=== PATIENT | female | born 1950 | race Caucasian/White ===

== ENCOUNTER → 2016-11-14 | Outpatient (CLI) | payer OTHER ==
[~2016-11-14] MED LIST: AMOX875T PO; ASCO100061 PO; ASPEC81 PO; BIMA0.01 OPB; CALC1TAB9 PO; CHOL100010 PO; GLCSC500400 PO; JUICE PLUS; METH-736 PO; MULTTAB58 PO; OMEG10007 PO; RAMI5CAP PO; SIMV20TA2 PO; SITA50TA5 PO
[2016-11-14 09:32] LABS: BASO % 0.5 %; BASO ABS # 0.04 K/uL (0-0.2); COMPLETE YES; HEMATOCRIT 43.2 % (37-47); IG% 0.3 %; LYMPH % 19.9 %; LYMPH ABS # 1.58 K/uL (1.2-3.4); MEAN CELL VOLUME 93.1 fL (80-100); MEAN CORPUSCULAR HEMOGLOBIN 30.8 pg (25-34); MEAN CORPUSCULAR HGB CONC 33.1 g/dl (32-36); MEAN PLATELET VOLUME 10.3 fL (7.4-10.4); MONO % 7.4 %; NEUT % 69.9 %; PLATELET COUNT 186 K/uL (130-400); RED BLOOD COUNT 4.64 M/uL (4.2-5.4); WHITE BLOOD COUNT 7.95 K/uL (4.8-10.8)
[2016-11-14 09:47] LABS: ALT/SGPT 44 U/L (12-78); AST/SGOT 23 U/L (15-37); BLOOD UREA NITROGEN 20 mg/dl (7-18); BUN/CREATININE RATIO 30.5 (10-20); CALCIUM 8.7 mg/dl (8.5-10.1); CARBON DIOXIDE 29 mmol/L (21-32); CHLORIDE 107 mmol/L (98-107); CREATININE 0.64 mg/dl (0.60-1.20); GLUCOSE 106 mg/dl (70-99); POTASSIUM 4.4 mmol/L (3.5-5.1); SODIUM 141 mmol/L (136-145)
[2016-11-14 09:54] LABS: ESTIMATED AVERAGE GLUCOSE 126 mg/dl; HA1C FLAG Normal (Normal)
[2016-11-14 09:59] LABS: ALB/GLOB RATIO 1.1 (0.9-2); ALKALINE PHOSPHATASE 106 U/L (45-117); CHOLESTEROL 152 mg/dl (0-200); CHOLESTEROL/HDL RATIO 2.9; HDL CHOLESTEROL 52 mg/dl; LDL CHOLESTEROL CALCULATED 84 mg/dl; TRIGLYCERIDES 81 mg/dl (0-150); VERY LOW DENSITY LIPOPROT CALC 16 mg/dl
== END | disposition home or self-care (01) ==
LOC: C.LAB 06:58
PROVIDERS: ATTEND Internal Medicine
DX: I10 Essential (primary) hypertension (principal)

== ENCOUNTER → 2016-12-30 | Outpatient (CLI) | payer OTHER | END | disposition home or self-care (01) | LOC: C.PATHSPEC 16:42 | PROVIDERS: ATTEND Dermatology | DX: L30.8 Other specified dermatitis (principal) ==

== ENCOUNTER → 2017-04-10 | Outpatient (CLI) | payer OTHER ==
--- NOTE | 2017-04-10 13:43 | MAMMOGRAPHY REPORT ---
BILATERAL DIGITAL SCREENING MAMMOGRAM WITH CAD: 04/10/2017 CLINICAL HISTORY: Routine screening. Patient has no complaints. TECHNIQUE: Current study was also evaluated with a Computer Aided Detection (CAD) system. Bilateral CC and MLO views were obtained. COMPARISON: Comparison is made to exams dated: 04/09/2016 mammogram, 04/04/2014 ultrasound, 4 mammogram, 03/10/2013 mammogram, 03/08/2012 mammogram, and 02/27/2011 mammogram - [facility]. BREAST COMPOSITION: There are scattered areas of fibroglandular density in both breasts. FINDINGS: No suspicious masses, calcifications, or areas of architectural distortion are noted in ei ther breast. There has been no significant interval change compared to prior exams. Again noted are fluctuating small bilateral benign-appearing masses, which likely represent cysts. Scattered bilatera l benign-appearing calcifications are not significantly changed. IMPRESSION: ACR BI-RADS CATEGORY 2: BENIGN There is no mammographic evidence of malignancy. A 1 year screening mammogram is recommended. The pa tient will receive written notification of the results. Approximately 10% of breast cancers are not detected with mammography. A negative mammographic report should not delay biopsy if a clinically suggestive mass is present. Thea Mi M.D. ah/:04/10/2017 08:02:03 Certified Pathology Assistant: Katrin Vazquez, [facility] letter sent: Normal 1/2 BI-RADS Code: ACR BI-RADS Category 2: Benign
== END | disposition home or self-care (01) ==
LOC: C.MAMM 07:32
PROVIDERS: ATTEND Internal Medicine
DX: Z12.31 Encounter for screening mammogram for malignant neoplasm of breast (principal)

== ENCOUNTER → 2018-01-29 | Outpatient (CLI) | payer OTHER ==
[2018-01-29 09:37] LABS: BASO % 0.5 %; BASO ABS # 0.04 K/uL (0-0.2); EOS % 2.4 %; EOS ABS # 0.18 K/uL (0-0.5); HEMATOCRIT 44.4 % (37-47); HEMOGLOBIN 14.7 g/dL (12.0-16.0); IG# 0.02 K/uL (0.00-0.02); LYMPH % 27.5 %; LYMPH ABS # 2.08 K/uL (1.2-3.4); MEAN CELL VOLUME 92.9 fL (80-100); MEAN CORPUSCULAR HEMOGLOBIN 30.8 pg (25-34); MEAN CORPUSCULAR HGB CONC 33.1 g/dl (32-36); MEAN PLATELET VOLUME 10.8 fL (7.4-10.4); MONO % 11.4 %; MONO ABS # 0.86 K/uL (0.11-0.59); NEUT % 57.9 %; NEUT ABS # 4.38 K/uL (1.4-6.5); PLATELET COUNT 173 K/uL (130-400); RED CELL DISTRIBUTION WIDTH CV 13.7 % (11.5-14.5); RED CELL DISTRIBUTION WIDTH SD 46.7 fL (36.4-46.3); WHITE BLOOD COUNT 7.56 K/uL (4.8-10.8)
[2018-01-29 10:02] LABS: ALBUMIN 3.8 gm/dl (3.4-5.0); ALKALINE PHOSPHATASE 81 U/L (45-117); ALT/SGPT 52 U/L (12-78); AST/SGOT 29 U/L (15-37); BLOOD UREA NITROGEN 22 mg/dl (7-18); CARBON DIOXIDE 28 mmol/L (21-32); CHOLESTEROL 154 mg/dl (0-200); CREATININE 0.61 mg/dl (0.60-1.20); GLUCOSE 103 mg/dl (70-99); LDL CHOLESTEROL CALCULATED 92 mg/dl; POTASSIUM 4.3 mmol/L (3.5-5.1); SODIUM 139 mmol/L (136-145); TOTAL PROTEIN 7.1 gm/dl (6.4-8.2)
[2018-01-29 10:31] LABS: HEMOGLOBIN A1C 6.1 % (4.5-5.6)
== END | disposition home or self-care (01) ==
LOC: C.LAB 06:58
PROVIDERS: ATTEND Internal Medicine
DX: Z00.00 Encounter for general adult medical examination without abnormal findings (principal); I10 Essential (primary) hypertension; M19.90 Unspecified osteoarthritis, unspecified site; E11.9 Type 2 diabetes mellitus without complications; G47.33 Obstructive sleep apnea (adult) (pediatric); E78.5 Hyperlipidemia, unspecified

== ENCOUNTER 2019-06-06 07:42 | Observation (INO) ==
--- NOTE | 2019-05-31 10:58 | Anesthesiology Consultation ---
Date of Service May 31, 2019 Assessment & Plan Chart Review Chart Review: Acceptable Risk for Surgery and Patient NOT seen in Pre Admission Testing Consults Requested none ASA ASA3 Proposed Anesthesia Anesthesia Type: General History Surgery Operation Date: 06/06/19 07:00 Proposed Procedures p Left Breast Lumpectomy with Needle Localization and Left [place] Lymph Node Biopsy - Abram Woodson MD, FACS Height/Weight Height: 5 ft Weight: 79.379 kg Allergies Allergy/AdvReac Type Severity Reaction Status Date / Time amoxicillin Allergy rash Verified 05/18/19 12:41 Medications Home Medications Medication Instructions Recorded Confirmed Last Taken ramipril 5 mg capsule 5 mg PO QAM 05/05/19 05/18/19 Unknown sitagliptin 50 mg-metformin 1,000 1 tab PO BID 05/05/19 05/18/19 Unknown mg tablet bimatoprost 0.01 % eye drops 1 drops OP QPM 05/12/19 05/18/19 Unknown Juice Plus 1 dose PO DAILY 05/18/19 05/18/19 Unknown Relief Factor 1 dose PO DAILY 05/18/19 05/18/19 Unknown ascorbic acid (vitamin C) [Vitamin 1,000 mg PO QDL 05/18/19 05/18/19 Unknown C] aspirin 81 mg PO 3XWK 05/18/19 05/18/19 Unknown calcium citrate-vitamin D3 1 tab PO BID 05/18/19 05/18/19 Unknown [Citracal + D Maximum] cholecalciferol (vitamin D3) 1,000 unit PO BID 05/18/19 05/18/19 Unknown [Vitamin D3] [id number]-ruma-bosw 1 tab PO BID 05/18/19 05/18/19 Unknown [Glucosamine-Chondroitin 3X] simvastatin 20 mg PO QPM 05/18/19 05/18/19 Unknown Past Medical History Medical History Aortic valve sclerosis Borderline glaucoma Breast cancer Cardiac murmur [place]25 [place] Diabetes mellitus, type 2 NIDDM Hyperlipidemia (Inactive) Hypertension (Chronic) Mild obstructive sleep apnea (Chronic) no device Osteoarthritis Exercise / Class Metabolic Activity III < 4 Walking/Shop/Light housework Past Family History Family History Aunt Breast cancer Grandmother (Paternal) Diabetes Mother Cancer Grandfather (Paternal) Heart disease Grandmother (Maternal) Stroke Past Surgical History Surgical History History of breast biopsy Lt History of colonoscopy History of wisdom tooth extraction Past Anesthesia History No Hx of Anesthesia Complications and No Family Hx of Anesthesia Complications History of PONV No Hx of PONV and No Hx of Motion Sickness Social History Smoking Status: Never smoker Do You Dip or Chew Tobacco: No Hx Alcohol Use: Yes Alcohol type: wine alcohol intake frequency: holidays/special occasions only Hx Substance Use: No substance use type: does not use Testing Laboratory Results WBC: 6.09 Hc.6 Hct: 42.8 PLATELETS: 183 SODIUM: 138 POTASSIUM: 4.2 CHLORIDE: 103 CO2: 28 BUN: 16 CREATININE: 0.67 GLUCOSE: 115 PT: PTT: INR: UA: TYPE AND SCREEN: HgB A1C-6.1 Electrocardiogram Date: 05/31/19 Findings: + NSR @ (at 63)
[~2019-06-06 07:42] MED LIST changes: -AMOX875T PO; -ASCO100061 PO; -ASPEC81 PO; -BIMA0.01 OPB; -CALC1TAB9 PO; +CEFAZOLIN 2000MG 2,000 MG/15 ML SYR IV SCH; -CHOL100010 PO; -GLCSC500400 PO; -JUICE PLUS; +LR 15ML/HR IV SCH; -METH-736 PO; -MULTTAB58 PO; -OMEG10007 PO; -RAMI5CAP PO; -SIMV20TA2 PO; -SITA50TA5 PO
[2019-06-06] MEDS ORDERED: MIDAZOLAM HCL 1 MG/ML 2ML VIAL ONE (09:17)
[2019-06-06] MEDS ORDERED: DEXAMETHASONE SOD INJ 4 MG/ML VIAL ONE (09:17)
[2019-06-06] MEDS ORDERED: fentaNYL citrate 100 MCG/2 ML VIAL ONE ×2 (09:17→11:17)
[2019-06-06] MEDS ORDERED: PROPOFOL IV EMULSION 10 MG/ML 20 ML VIAL IV ONE ×2 (09:17→11:39)
[2019-06-06] MEDS ORDERED: LIDOCAINE HCL 2% 2 ML VIAL/AMP(20MG/ML) INFIL ONE (09:17)
[2019-06-06] MEDS ORDERED: ONDANSETRON INJ 2 MG/ML 2 ML VIAL ONE (09:17)
--- NOTE | 2019-06-06 09:52 | Nuclear Medicine Report ---
LYMPHOSCINTIGRAPHY CLINICAL HISTORY: Left-sided breast cancer. PROCEDURE: Using standard sterile technique, 4 intradermal periareolar and one deep injection of 0.47 7 mCi of Lymphoseek was placed in the left breast. The patient tolerated the procedure well. There we re no immediate complications. The patient was subsequently transported to the surgical suite. No luis ging was obtained at the referring physician's request. IMPRESSION: Injection of 0.477 mCi of Lymphoseek in the left breast. Electronically signed by: William Steele M.D. 06/06/2019 9:50 AM
[2019-06-06] MEDS ORDERED: ISOSULFAN BLUE 10 MG/ML VIAL 5 ML ONE (09:55)
[2019-06-06] MEDS ORDERED: BUPIVACAINE 0.5 % 5 MG/1 ML MPF 30ML VIAL ONE (09:55)
--- NOTE | 2019-06-06 09:58 | History & Physical Bridge Note ---
Date of Service June 06, 2019 History & Physical Bridge Note I have examined the patient, reviewed the History & Physical and in the interval since the performance of the History & Physical I have noted the following changes of clinical significance: no changes noted
[2019-06-06] MEDS ORDERED: ePHEDrine sulfate 50 MG/ML AMP IV PRN (10:04)
[2019-06-06] MEDS ORDERED: fentaNYL citrate 100 MCG/2 ML VIAL IV PRN (10:04)
[2019-06-06] MEDS ORDERED: PROMETHAZINE HCL 12.5 MG in SODIUM CHLORIDE 0.9% 50 ML IV PRN ×2 (10:04→12:40)
[2019-06-06] MEDS ORDERED: FLUMAZENIL 0.1 MG/1 ML 10 ML VIAL IV PRN (10:04)
[2019-06-06] MEDS ORDERED: ATROPINE SULFATE 0.1 MG/ML 10ML SYR IV PRN (10:04)
[2019-06-06] MEDS ORDERED: ONDANSETRON INJ 2 MG/ML 2 ML VIAL IV PRN ×2 (10:04→12:40)
[2019-06-06] MEDS ORDERED: HYDROmorphone INJ 1 MG/ML SYRINGE IV PRN (10:04)
[2019-06-06] MEDS ORDERED: LABETALOL HCL IV 5 MG/ML 20ML IV PRN (10:04)
[2019-06-06] MEDS ORDERED: NALOXONE HCL 0.4 MG/1 ML VIAL/CARP IV PRN (10:04)
[2019-06-06] MEDS ORDERED: CEFAZOLIN 2,000 MG/15 ML IV PUSH IV ONE (10:12)
[2019-06-06] MEDS ORDERED: METHYLENE BLUE 0.5% 10 ML VIAL ONE (10:22)
[2019-06-06] MEDS ORDERED: PHENYLEPHRINE 100MCG/ML 5ML SYR ONE (10:39)
[2019-06-06] MEDS ORDERED: KETOROLAC 30 MG/ML VIAL ONE (11:25)
--- NOTE | 2019-06-06 11:39 | Post Operative Brief Note ---
PG Immediate Post Op with CF Date of Surgery June 06, 2019 Pre & Post Diagnosis Operation Date: 06/06/19 11:45 Pre-Op Diagnosis: Left Breast Cancer Post-Op Diagnosis: Left Breast Cancer I identified the patient and participated in the time-out.: Yes Procedure Operation Date: 06/06/19 11:45 Actual Procedures p Left Breast Lumpectomy with Needle Localization and Left [place] Lymph Node Biopsy(Left) - Abram Woodson MD, FACS Surgeon Abram Woodson MD, FACS Event Attendant Henrique Hastings Estimated Blood Loss 20 Findings Consistent with Post-Op Diagnosis Specimens Specimen Description: Frozen 1. Left [place] Lymph Node Fresh 1. Left Breast Tissue, Skin Anterior, Needle is Medial, Long silk is lateral/retro aerolar, short silk superior 2. Left breast additional lateral/ retro aereolar/ superior tissue, long silk- retro aereolar, short silk-medial, methylene blue-new margin 3.Left breast additional inferior tissue, long silk-lateral, short silk-medial, methylene blue-new margin
[2019-06-06] MEDS ORDERED: ALBUTEROL 0.083% NEBU SOLN 3 ML VIAL NEB ONE (11:56)
[2019-06-06] MEDS ORDERED: ACETAMINOPHEN 1,000 MG/100 ML VIAL IV ONE (12:00)
--- NOTE | 2019-06-06 12:08 | Operative Report ---
DATE OF OPERATION: 06/06/2019 NAME OF OPERATION: Left lumpectomy with sentinel lymph node biopsy. PREOPERATIVE DIAGNOSIS: Invasive ductal carcinoma of the left breast. POSTOPERATIVE DIAGNOSIS: Invasive ductal carcinoma of the left breast. STAFF SURGEON: Abram Woodson M.D. COMBINATION WELDER APPRENTICE: Rashmi Calvo. ANESTHESIA: General. DESCRIPTION OF PROCEDURE: The patient was brought in the operating room and placed on the operating table in supine position. Left arm was extended on an arm board. She had undergone needle localization of left breast and injection for sentinel lymph node biopsy. Left breast and axilla were prepped and draped in usual fashion. My drafter assistant helped with prepping, draping, excision of the breast tissue and lymph node and closure of the wounds. Initially, incision was made in the left axilla using 0.5% plain Marcaine to anesthetize breast and axilla. Dissection was carried down deep into the axilla using the Neoprobe identifying a large axillary node which was sent for frozen section. The frozen section was negative. During the frozen section, we performed lumpectomy. The needle was placed at approximately 8 o'clock medial left breast toward the retroareolar area. Elliptical incision was made taking superficial tissue down around the needle and then the tissue was marked left breast tissue with the needle medial, skin anterior, long suture lateral/retroareolar, short suture superior. I then took additional tissue. The initial tissue was additional lateral/retroareolar/superior. It was marked with a long suture retroareolar, short suture medial, methylene blue new margin. I took additional inferior tissue which was marked with long silk suture lateral and short silk suture medial with methylene blue new margin. I also placed clips near the area of the prior clip. After appropriate hemostasis, the tissue was also initially put into the Faxitron and the clip was in the center of the tissue and I did discuss this with Dr. Flores. At this point, both incisions were closed by reapproximating the deep tissue using 2-0 plain suture. The axilla was reapproximated using 4-0 nylon for the skin, the breast using subcuticular 4-0 Monocryl with Steri-Strips. Dressings applied and patient transferred to recovery room in stable condition. I attest to the content of the Intraoperative Record and any orders documented therein. Any exception s are noted below.
[2019-06-06] MEDS ORDERED: SUCCINYLCHOLINE 100MG/5ML SYR ONE (12:14)
--- NOTE | 2019-06-06 12:35 | Anesthesiology Progress Note ---
Date of Service June 06, 2019 Anesthesia Post Procedure Vital Signs Vital Signs: Temp Pulse Pulse Resp BP Pulse Ox 06/06/19 12:30 70 16 145/73 H 96 06/06/19 12:26 75 14 97 06/06/19 12:20 72 16 139/94 100 06/06/19 12:10 70 18 143/84 H 99 06/06/19 12:04 37.0 C 69 18 138/76 98 06/06/19 09:57 36.7 C 69 18 172/88 H 98 Transfer of Care Handoff Completed per policy Notes Mental Status: alert / awake / arousable Patient Amnestic to Procedure: Yes Nausea / Vomiting: adequately controlled Pain: adequately controlled Airway Patency, RR, SpO2: stable & adequate BP & HR: stable & adequate Hydration State: stable & adequate Anesthetic Complications: no major complications apparent
[2019-06-06] MEDS ORDERED: MoRPHine SULFATE 2 MG/ML CARP IV PRN ×2 (12:40)
[2019-06-06] MEDS ORDERED: HYDROCODONE/ACETAMOPHEN 5/325MG TAB PO PRN ×2 (12:40)
[2019-06-06] MEDS ORDERED: PROMETHAZINE HCL 25 MG in SODIUM CHLORIDE 0.9% 50 ML IV PRN (12:40)
[2019-06-06] MEDS ORDERED: IBUPROFEN 600 MG TAB PO PRN (12:40)
[2019-06-06] MEDS ORDERED: ACETAMINOPHEN 325 MG TAB PO PRN (12:40)
--- NOTE | 2019-06-06 13:52 | Hospitalist Consultation ---
Date of Consultation June 06, 2019 Assessment & Plan (1) Invasive ductal carcinoma of breast: - Pain management, bowel regimen and dvt ppx per primary team - PT/OT - pt uses ambulatory device and guides herself along avila/etc for balance. 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 - Lifting/activity limitations per the primary team (2) Hypertension: - Continue ramipril, BP slightly elevated upon arrival to the room s/p surgery at 143/78. Will continue to monitor. (3) Aortic valve sclerosis: - noted (4) Mild obstructive sleep apnea: - Does not use CPAP device (5) Diabetes mellitus, type 2: - Cont ISS with accuchecks ACHS - Pt did not take Janumet this morning due to surgical procedure, will plan on resuming upon discharge - Last a1c = 6.1 on 05/09/19 - HH/DM diet (6) Arthritis: - Pain management as above (7) Arthritis of knee, degenerative: - Stable, right knee, continue using cane with ambulation. (8) DVT prophylaxis: - teds, ambulatory Dispo: From home, remain in the hospital overnight and likely discharge tomorrow per primary team. Thank you for involving us in the care of Ms. Canchola. Please do not hesitate to call with questions or concerns. At this time medicine service will sign off. History of Present Illness Reason for Consultation: Medical management Requesting Physician: Dr. Woodson Attending Physician: Abram Woodson MD, [facility] History of Present Illness This is a 69 yo F with PMHx of Invasive ductal carcinoma of the left breast, grade 3, ER/DE >90%, HER2 1+ diagnosed 05/02/19, who underwent elective lumpectomy by Dr. Woodson today on 06/06/19, as well as HTN, aortic valve sclerosis, DM II, mild obstructive sleep apnea, and arthritis. She is present h ere with her cousin and . Pt notes that she is doing well since surgery. Her pain is well controlled, and has eaten lunch without any difficulty. She notes that she did not take Janumet this morning, but was counseled that we will monitor her blood glucose while here in the hospital. She has been up and ambulated to the bathroom without difficulty. She denies any other acute complaints. Allergies Allergy/AdvReac Type Severity Reaction Status Date / Time amoxicillin Allergy rash Verified 06/06/19 09:43 Home Medications Home Medications Medication Instructions Recorded Confirmed Type ramipril 5 mg capsule 5 mg PO QAM 05/05/19 06/06/19 History sitagliptin 50 mg-metformin 1,000 1 tab PO BID 05/05/19 06/06/19 History mg tablet bimatoprost 0.01 % eye drops 1 drops OP QPM 05/12/19 06/06/19 History Juice Plus 1 dose PO DAILY 05/18/19 06/06/19 History Relief Factor 1 dose PO DAILY 05/18/19 06/06/19 History ascorbic acid (vitamin C) [Vitamin 1,000 mg PO QDL 05/18/19 06/06/19 History C] aspirin 81 mg PO 4XWK 05/18/19 06/06/19 History calcium citrate-vitamin D3 1 tab PO BID 05/18/19 06/06/19 History [Citracal + D Maximum] cholecalciferol (vitamin D3) 1,000 unit PO BID 05/18/19 06/06/19 History [Vitamin D3] [id number]-C-ruma-bosw 1 tab PO BID 05/18/19 06/06/19 History [Glucosamine-Chondroitin 3X] simvastatin 20 mg PO QPM 05/18/19 06/06/19 History nesymhruktki-wczalvac-[id number] 1 tab PO 4XWK 06/06/19 06/06/19 History [Multivitamin 50 Plus] Patient History Medical History (Updated 06/06/19 @ 14:08 by Pat Nickerson PA-C) Aortic valve sclerosis Borderline glaucoma Breast cancer Cardiac murmur [place]25 [place] Diabetes mellitus, type 2 NIDDM Hyperlipidemia (Inactive) Hypertension (Chronic) Mild obstructive sleep apnea (Chronic) no device Osteoarthritis Surgical History (Updated 06/06/19 @ 13:33 by Lucy Dye RN) History of breast biopsy Lt History of colonoscopy History of wisdom tooth extraction S/P lumpectomy of breast (06/06/19) Left lumpectomy with sentinel lymph node biopsy. Dr. Woodson 06/06/19 Family History Aunt Breast cancer Grandmother (Paternal) Diabetes Mother Cancer Grandfather (Paternal) Heart disease Grandmother (Maternal) Stroke Social History Preferred Language: Chinese Communication Ability: Effective Hearing Ability: Normal Pattern Grader Required: No Beliefs That Will Affect Care: Faith Faith Beliefs: baptism marital status: Current Living Situation: Spouse current occupational status: employed current occupation: animal killer Other Information That Helps Us Care for You: No Feels Safe at Home: Yes Safety Concerns: Feels Safe At This Time Smoking Status: Never smoker Do You Dip or Chew Tobacco: No ; Second Hand Exposure: No ; Hx Alcohol Use: Yes Alcohol type: wine Alcohol Intake Frequency: Holidays/Special Occasions Hx Substance Use: No Seatbelt Use: always Sunscreen Use: Yes Review of Systems Review of Systems: Constitutional: No fever, sweats or chills Eyes: No diplopia, no worsening or blurred vision ENT: normal hearing, no trouble swallowing Respiratory: No cough, sputum, dyspnea at rest or on exertion Chest wall: Pain well controlled, using cane to walk with the right hand Cardiovascular: No chest pain, tightness or palpitations Abdomen: No pain, nausea, vomiting, diarrhea or constipation Musculoskeletal: No joint pain, calf pain, swelling Neurologic: No weakness, numbness/tingling, or balance problems Psychiatric: No anxiety or depression Skin: No rash or itch Physical Exam Physical Exam: General: awake, alert, no apparent distress, + obese Head: Normocephalic, atraumatic ENT: PERRL, EOMI, no pharyngeal exudate, mucous membranes moist Chest: + Binder in place, bandage c/d/i, clear to auscultation, on room air, no adventitious breath sounds Cardiac: Regular rate and rhythm, no murmur, no JVD, normal peripheral pulses, good capillary refill Abdominal: NABS x 4 quadrants, soft, nontender to palpation, no rebound, guarding or tenderness Extremities: Normal inspection, no peripheral edema or erythema, calfs nontender to palpation Psych: Normal mood and affect Neuro: AAO x 3, strength intact bilaterally and related 5/5, no motor deficits, speech is clear, no peripheral sensory deficits Results & Data Vital Signs (Past 12 Hours) Vital Signs Temp Pulse Pulse Resp BP Pulse Ox 06/06/19 12:55 36.8 C 72 14 152/77 H 96 06/06/19 12:40 36.6 C 76 16 149/72 H 96 06/06/19 12:30 70 16 145/73 H 96 06/06/19 12:26 75 14 97 06/06/19 12:20 72 16 139/94 100 06/06/19 12:10 70 18 143/84 H 99 06/06/19 12:04 37.0 C 69 18 138/76 98 06/06/19 09:57 36.7 C 69 18 172/88 H 98 PG Care Time/CCT Total # of Minutes Spent Total Time Spent with Patient: Total time spent is greater than 50% in coordination of care (as documented) at patient's floor/unit and/or counseling patient:
[2019-06-06] MEDS ORDERED: SODIUM CHLORIDE 0.9% 1000ML 1,000 ML IV SCH (14:00)
[2019-06-06] MEDS ORDERED: GLUCOSE 10 TABS/TUBE PO PRN (14:05)
[2019-06-06] MEDS ORDERED: CARBOHYDRATES FOR HYPOGLYCEMIA PO PRN (14:05)
[2019-06-06] MEDS ORDERED: GLUCOSE 40% GEL 15 GM TUBE PO PRN (14:05)
[2019-06-06] MEDS ORDERED: GLUCAGON FOR INJ 1 MG VIAL SQ PRN (14:05)
[2019-06-06] MEDS ORDERED: DEXTROSE 50% 50 ML SYRINGE IV PRN (14:05)
--- NOTE | 2019-06-06 15:19 | Mammography Report ---
NEEDLE LOCALIZATION LEFT BREAST: 06/06/2019 CLINICAL HISTORY: Biopsy-proven invasive ductal carcinoma in the 7:00 anterior left breast. Patient p resents for preoperative needle and wire localization prior to lumpectomy. COMPARISON: Comparison is made to exams dated: 05/16/2019 breast MRI, 05/02/2019 mammogram, 05/02/20 19 ultrasound biopsy, 04/27/2019 ultrasound, 04/27/2019 mammogram, and 04/14/2019 mammogram - [facility]. PATIENT CONSENT: The risks of the procedure were explained to the patient and informed consent was o btained both verbally and in writing. Specific risks include: Bleeding, infection, puncture of adjac ent structure, nontarget localization, medication reaction, dizziness and lightheadedness. The patie nt stopped required medications prior to surgery. She did not eat or drink anything this morning bridget t would preclude anesthesia. A timeout was performed in the left breast was confirmed as a site for preoperative localization. PROCEDURE DESCRIPTION: First, the patient was positioned supine with left arm extended. Repeat targe joel ultrasound was performed in the 7:00 left breast and the previously biopsied hypoechoic mass with associated ribbon-shaped biopsy marker was identified. The left breast was prepped and draped in th e usual sterile fashion. 1% buffered Lidocaine without epinephrine was administered as local anesthe es. A 5cm Titus II needle and wire combination was inserted into the breast. Optimal positioning w as confirmed and the wire was locked in place, leaving both the needle and wire within the breast, as per surgeon's preference. Post localization left CC and MLO 2D and tomosynthesis images were obtain ed. These mammography views demonstrate the ribbon-shaped biopsy marker just anterior and inferior t o the localizing needle at the level of the proximal danisha. The entire procedure including approach a nd needle length were discussed with the operating surgeon prior to surgery. The patient tolerated t he procedure well and there was no immediate complication. She was sent to the operating room in sat isfactory condition. A surgical specimen radiograph was obtained which demonstrates the localizing needle/wire, ribbon-sha ped biopsy marker and area of distortion within the specimen, compatible with successful preoperative localization and subsequent surgical excision. Final surgical pathology is pending. IMPRESSION: NEEDLE LOCALIZATION Status post preoperative needle and wire localization for biopsy-proven carcinoma in the 7:00 anterio r left breast. The imaged specimen includes the intended abnormalities. Final surgical pathology is pending. Erika Flores M.D. ay/:06/06/2019 12:03:31 Hazard Mitigation Officer: Karely Macias RT(R)(M), [facility]; RT Kun(R) (M), [facility]
[2019-06-06] MEDS: CEFAZOLIN 1000MG 1,000 MG/7.5 ML SYR IV SCH (17:42)
[2019-06-06] MEDS: INSULIN ASPART 100 UNITS/ML 3 ML PEN SC SCH ×2 (19:16→20:45)
[2019-06-06] MEDS ORDERED: SIMVASTATIN 20 MG TAB PO SCH (21:00)
[2019-06-06] MEDS ORDERED: BIMATOPROST 0.01% OP SOLN 2.5 ML BTL OP SCH (21:00)
[2019-06-07] MEDS: CEFAZOLIN 1000MG 1,000 MG/7.5 ML SYR IV SCH (02:47)
--- NOTE | 2019-06-07 08:08 | Anesthesiology Progress Note ---
Date of Service June 07, 2019 Anesthesia Post Procedure Vital Signs Vital Signs: Temp Pulse Pulse Resp BP BP Pulse Ox 06/07/19 07:56 36.5 C 60 18 157/97 H 96 06/07/19 07:27 36.6 C 81 76 16 145/81 H 149/77 H 97 06/07/19 07:24 36.6 C 81 76 16 145/81 H 149/77 H 97 06/07/19 02:53 36.6 C 81 16 149/77 H 97 06/06/19 23:01 36.8 C 72 16 145/81 H 96 06/06/19 20:04 37 C 73 16 151/83 H 93 06/06/19 15:55 37.3 C 79 16 153/75 H 95 06/06/19 15:05 37.2 C 73 16 166/82 H 94 06/06/19 13:53 75 16 143/78 H 94 06/06/19 13:25 36.8 C 80 16 142/80 H 93 06/06/19 12:55 36.8 C 72 14 152/77 H 96 06/06/19 12:40 36.6 C 76 16 149/72 H 96 06/06/19 12:30 70 16 145/73 H 96 06/06/19 12:26 75 14 97 06/06/19 12:20 72 16 139/94 100 06/06/19 12:10 70 18 143/84 H 99 06/06/19 12:04 37.0 C 69 18 138/76 98 06/06/19 09:57 36.7 C 69 18 172/88 H 98 Notes Mental Status: alert / awake / arousable Patient Amnestic to Procedure: Yes Nausea / Vomiting: adequately controlled Pain: adequately controlled Airway Patency, RR, SpO2: stable & adequate BP & HR: stable & adequate Hydration State: stable & adequate Anesthetic Complications: no major complications apparent and Pt Satisfied with anesthetic care
[2019-06-07] MEDS: INSULIN ASPART 100 UNITS/ML 3 ML PEN SC SCH (08:45)
[2019-06-07] MEDS ORDERED: ENALAPRIL MALEATE 10 MG TAB PO SCH (09:00)
--- NOTE | 2019-06-08 08:30 | Discharge Summary ---
PRINCIPAL DIAGNOSIS: Left breast cancer. PROCEDURES: The patient underwent left breast lumpectomy with sentinel lymph node biopsy. HISTORY OF PRESENT ILLNESS: The patient is a 69-year-old female with known left breast cancer brought into the hospital for definitive surgery. She was brought in on 06/06/2019 where she underwent left lumpectomy with sentinel lymph node biopsy which she tolerated very well. She did well overnight and was felt stable for discharge the next day with normal physical findings to be followed in the surgical clinic within 1 week.
== END 2019-06-07 09:45 | disposition home or self-care (01) ==
LOC: 3N 07:42 → ASU 07:42 → 3N 20:32